=== PATIENT | male | born 1995 | race Caucasian/White ===

== ENCOUNTER 2020-10-07 14:44 | Emergency (ER) | payer MEDICAID ==
[2020-10-07 15:59] VITALS: BP 116/73
[2020-10-07 16:12] LABS: BASOPHILS % (AUTO) 0.6 % (0-1); EOSINOPHILS # (AUTO) 0.1 X10'3 (0-0.9); EOSINOPHILS % (AUTO) 1.8 % (0-6); HEMATOCRIT 45.5 % (42.0-52.0); HEMOGLOBIN 15.9 g/dl (14.0-17.9); LYMPHOCYTES # (AUTO) 2.6 X10'3 (1.1-4.8); LYMPHOCYTES % (AUTO) 33.1 % (21-51); MEAN CORPUSCULAR HEMOGLOBIN 30.3 PG (27.0-31.0); MEAN CORPUSCULAR HGB CONC 34.9 g/dL (33.0-36.5); MEAN CORPUSCULAR VOLUME 86.7 FL (78-98); MEAN PLATELET VOLUME 7.9 FL (7.4-10.4); MONOCYTES # (AUTO) 0.5 X10'3 (0-0.9); MONOCYTES % (AUTO) 6.9 % (2-12); NEUTROPHILS # (AUTO) 4.5 X10'3 (1.8-7.7); NEUTROPHILS % (AUTO) 57.6 % (42-75); PLATELET COUNT 271 X10'3 (140-440); RED BLOOD COUNT 5.24 X10'6 (4.70-6.10); RED CELL DISTRIBUTION WIDTH 12.1 % (11.5-14.5); WHITE BLOOD COUNT 7.9 X10'3 (4.5-11.0)
[2020-10-07 16:24] LABS: ALANINE AMINOTRANSFERASE 50 U/L (12-78); ALBUMIN 4.8 G/DL (3.4-5.0); ALBUMIN/GLOBULIN RATIO 1.5 (1.1-1.5); ALKALINE PHOSPHATASE 48 IU/L (46-116); ANION GAP 10 (8-16); ASPARTATE AMINO TRANSFERASE 26 U/L (10-37); BILIRUBIN,TOTAL 1.3 MG/DL (0.1-1.0); BLOOD UREA NITROGEN 9 MG/DL (7-18); BUN/CREATININE RATIO 11.1 (5.4-32.0); CALCIUM 9.2 MG/DL (8.5-10.1); CHLORIDE 101 MMOL/L (99-107); CREATININE 0.81 MG/DL (0.60-1.10); GLUCOSE 98 MG/DL (70-104); POTASSIUM 3.6 MMOL/L (3.5-5.1); SODIUM 140 MMOL/L (135-145); TOTAL CARBON DIOXIDE 29.1 MMOL/L (24-32); TOTAL PROTEIN 8.1 G/DL (6.4-8.2); eGFR > 90 ML/MIN
== END 2020-10-07 16:00 | disposition home or self-care (01) ==
LOC: ER 14:44
DX: R07.89 Other chest pain (principal); Z91.013 Allergy to seafood
CPT/HCPCS: 36415; 71045; 80053; 83880; 84484; 85025; 93005; 99285

== ENCOUNTER 2021-04-24 16:47 | Emergency (ER) | payer MEDICAID ==
[~2021-04-24] VITALS: Ht 172.7 cm; Wt 72.0 kg
--- NOTE | 2021-04-24 17:22 | NUR ---
there are no rooms available, pt is aware and contracted for safety, "I will stay", pt amb with steady gait to restroom
[2021-04-24 19:29] LABS: BASOPHILS % (AUTO) 0.5 % (0-1); EOSINOPHILS # (AUTO) 0.1 X10'3 (0-0.9); EOSINOPHILS % (AUTO) 1.6 % (0-6); HEMATOCRIT 45.2 % (42.0-52.0); LYMPHOCYTES # (AUTO) 3.1 X10'3 (1.1-4.8); MEAN CORPUSCULAR HEMOGLOBIN 30.5 PG (27.0-31.0); MEAN CORPUSCULAR HGB CONC 35.3 g/dL (33.0-36.5); MEAN CORPUSCULAR VOLUME 86.2 FL (78-98); MEAN PLATELET VOLUME 7.8 FL (7.4-10.4); MONOCYTES # (AUTO) 0.7 X10'3 (0-0.9); MONOCYTES % (AUTO) 8.4 % (2-12); NEUTROPHILS # (AUTO) 4.3 X10'3 (1.8-7.7); NEUTROPHILS % (AUTO) 52.5 % (42-75); PLATELET COUNT 268 X10'3 (140-440); RED BLOOD COUNT 5.24 X10'6 (4.70-6.10); RED CELL DISTRIBUTION WIDTH 11.6 % (11.5-14.5); WHITE BLOOD COUNT 8.3 X10'3 (4.5-11.0)
[2021-04-24 19:36] LABS: CLARITY,URINE CLEAR (Clear); COLOR,URINE YELLOW (Yellow); GLUCOSE, URINE NEGATIVE (Neg); KETONES,URINE TRACE mg/dl (Neg); LEUKOCYTE ESTERASE ,URINE TRACE (Neg); NITRITES, URINE NEGATIVE (Neg); OCCULT BLOOD,URINE NEGATIVE (Neg); PH,URINE 6.5 (4.8-8.0); PROTEIN,URINE NEGATIVE (Neg)
[2021-04-24 19:44] LABS: UA COLLECTION TYPE CLN CATCH MIDSTREAM
[2021-04-24 19:45] LABS: BACTERIA,URINE NONE SEEN /HPF (Neg); MUCUS STRANDS FEW /LPF (Neg); RBC,URINE NONE SEEN /HPF (0-2); SQUAMOUS EPITHELIAL CELL,UR NONE SEEN /LPF (FEW); WBC,URINE 0-4 /HPF (0-4)
--- NOTE | 2021-04-24 19:45 | NUR ---
PT CHANGED INTO GREEN SCRUBS, COMPLIANT, UNDERSTANDS THE WAIT. 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 PT SITTING ON BED.
[2021-04-24 19:50] LABS: ALANINE AMINOTRANSFERASE 39 U/L (12-78); ALBUMIN 4.7 G/DL (3.4-5.0); ALBUMIN/GLOBULIN RATIO 1.6 (1.1-1.5); ALKALINE PHOSPHATASE 50 IU/L (46-116); ANION GAP 8 (8-16); ASPARTATE AMINO TRANSFERASE 23 U/L (10-37); BILIRUBIN,TOTAL 1.5 MG/DL (0.1-1.0); BLOOD UREA NITROGEN 13 MG/DL (7-18); BUN/CREATININE RATIO 17.3 (5.4-32.0); CALCIUM 8.8 MG/DL (8.5-10.1); CHLORIDE 106 MMOL/L (99-107); CREATININE 0.75 MG/DL (0.60-1.10); GLUCOSE 91 MG/DL (70-104); POTASSIUM 3.7 MMOL/L (3.5-5.1); SODIUM 143 MMOL/L (135-145); TOTAL CARBON DIOXIDE 29.5 MMOL/L (24-32); TOTAL PROTEIN 7.7 G/DL (6.4-8.2); eGFR > 90 ML/MIN
[2021-04-24 19:50] LABS: URINE AMPHETAMINE SCREEN NEGATIVE (Neg); URINE BARBITUATE SCREEN NEGATIVE (Neg); URINE BENZODIAZEPINES SCREEN NEGATIVE (Neg); URINE CANNABINOID SCREEN NEGATIVE (Neg); URINE COCAINE SCREEN NEGATIVE (Neg); URINE METHADONE SCREEN NEGATIVE (Neg); URINE OPIATE SCREEN NEGATIVE (Neg); URINE PHENCYCLIDINE SCREEN NEGATIVE (Neg)
[2021-04-24 19:57] LABS: ETHANOL < 0.010 GM/DL (0.0-0.010)
--- NOTE | 2021-04-24 20:40 | NUR ---
PT STANDING IN ROOM, MAKING BED. SITTING OBSERVING, NO NEEDS AT THIS TIME.
--- NOTE | 2021-04-24 22:30 | NUR ---
PT GIVEN BLANKETS, PILLOW AND TUCKED INTO BED. DOORS CLOSED, CURTAIN OPEN PT IN LINE OF SIGHT OF NURSES STATION.
--- NOTE | 2021-04-24 23:30 | NUR ---
PT SLEEPING L. LATERAL, RR EVEN, NON-LABORED, NO SIGNS OF DISTRESS.
--- NOTE | 2021-04-25 00:30 | NUR ---
PT SLEEPING, RR EVEN, NON-LABORED, IN NO DISTRESS. PT IN LINE OF SIGHT OF NURSES STATION.
--- NOTE | 2021-04-25 01:30 | NUR ---
PT SLEEPING, RR EVEN, NON-LABORED, IN NO DISTRESS. PT IN LINE OF SIGHT OF NURSES STATION.
--- NOTE | 2021-04-25 02:30 | NUR ---
PT SLEEPING, RR EVEN, NON-LABORED, IN NO DISTRESS. PT IN LINE OF SIGHT OF NURSES STATION.
--- NOTE | 2021-04-25 03:30 | NUR ---
Pt. sleeping, RR even, non-labored, appears to be in no distress.
--- NOTE | 2021-04-25 04:00 | NUR ---
Pt. sleeping, RR even, non-labored, shows no signs of distress.
--- NOTE | 2021-04-25 04:36 | NUR ---
PATIENT'S PACKET WAS SENT TO [facility].
--- NOTE | 2021-04-25 05:00 | NUR ---
Pt. sleeping, RR even, non-labored, appears to be in no distress, in direct line of sight of nurses station.
[2021-04-25] MEDS ORDERED: acetaminophen 325mg tablet PO ONE (10:55)
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
--- NOTE | 2021-04-25 13:10 | NUR ---
Patient sitting up in bed. No distress observed. Continue to monitor.
--- NOTE | 2021-04-25 14:11 | NUR ---
Patient eating lunch. Lunch was not sent and RN ran down and brought pt food. No distress observed. Continue to monitor.
--- NOTE | 2021-04-25 16:03 | NUR ---
Patient sitting up in bed. No distress observed. Continue to monitor.
--- NOTE | 2021-04-25 17:19 | NUR ---
Patient given a cup of tea. Patient sitting in bed rubbing his neck and forehead. Continue to monitor.
--- NOTE | 2021-04-25 17:21 | NUR ---
Patient accepted at [facility]. Patient going between [id number]. Accepted by JOHN Romo at 1641. Patient is aware. Continue to monitor.
[2021-04-25 18:06] VITALS: BP 117/83
--- NOTE | 2021-04-25 18:59 | NUR ---
pt sitting at bedside eating dinner. no requests or concerns at this time
== END 2021-04-25 21:19 ==
LOC: ER 16:47
DX: F32.9 Major depressive disorder, single episode, unspecified (principal); R45.851 Suicidal ideations; Z20.822 Contact with and (suspected) exposure to COVID-19; Z91.013 Allergy to seafood
CPT/HCPCS: 36415; 80053; 80305; 80320; 81001; 84443; 85025; 87635; 99285; C9803